=== PATIENT | female | born 1995 | race Caucasian/White ===

== ENCOUNTER 2025-04-08 00:30 | Inpatient (IN) | payer OTHER ==
[~2025-04-08] VITALS: Ht 170.2 cm; Wt 80.7 kg
[2025-04-08] MEDS ORDERED: LACTATED RINGER'S 1,000 ML IV SCH (00:45)
[2025-04-08] MEDS ORDERED: LACTATED RINGER'S 1,000 ML IV PRN (00:45)
[2025-04-08] MEDS ORDERED: MAGNESIUM HYDROXIDE/AL HYDROX 30 ML CUP PO PRN ×2 (00:45→08:00)
[2025-04-08] MEDS ORDERED: LIDOCAINE HCL 1% 30 ML SDV INJ PRN (00:45)
[2025-04-08] MEDS ORDERED: TERBUTALINE SULFATE 1 MG/ML AMP SUB-Q PRN (00:45)
[2025-04-08] MEDS ORDERED: CALCIUM CARBONATE 500 MG CHEW PO PRN ×2 (00:45→08:00)
[2025-04-08] MEDS ORDERED: LIDOCAINE 2% VISCOUS 6 ML SYR TOP ONE (00:45)
[2025-04-08] MEDS ORDERED: OXYTOCIN/0.9 % SODIUM CHLORIDE 30 UNITS/500 ML BAG IV SCH ×2 (00:45→01:15)
[2025-04-08 00:50] LABS: MCH 32.9 PG (25.6-32.2); MCHC 36.6 g/dL (32.2-35.5); MCV 89.9 fL (79.4-94.8); RBC 4.14 M/uL (3.93-5.22)
[2025-04-08 01:07] VITALS: BP 136/83
[2025-04-08] MEDS ORDERED: ROPIVACAINE 0.2% 200 ML BAG ONE (01:12)
[2025-04-08 01:27] LABS: ABO AB; ANTIBODY SCREEN NEGATIVE; RH POSITIVE
[2025-04-08] MEDS ORDERED: ROPIVACAINE 0.2% 200 ML BAG EPIDURAL SCH (01:45)
[2025-04-08] MEDS ORDERED: LACTATED RINGER'S 2,000 ML IV ONE (01:45)
[2025-04-08] MEDS ORDERED: LACTATED RINGER'S 500 ML IV PRN (01:45)
[2025-04-08] MEDS ORDERED: ePHEDrine sulfate 5 MG/ML SYRINGE IV PRN (01:45)
--- NOTE | 2025-04-08 06:14 | PR ---
[facility] [address], [place] [address] Signed Progress Notes IP Datetime Report Generated by CPAntonio: 04/08/2025 06:14 PROGRESS NOTES: [id number] Impression: Normal Progression of Labor; Reassuring Heart Rate Procedures: Sterile Vag Exam Plan: Continue Present Management; Anticipate Vaginal Delivery Informed Consent Obtain: Vaginal Delivery; Risks, Benefits and Alternatives Discussed VITAL SIGNS: [id number] Vital Signs: Reviewed; Within Normal Limits EXAM: [id number] Dilatation: 10.0 Effacement: 100 Effacement: 100 Effacement: 100 Effacement: 90 Effacement: 90 Effacement: 90 Effacement: 80 Station: 1 Station: 1 Station: 1 Station: 0 Station: -1 Station: -1 Station: -1 Contractions: Q 2-3 min MEMBRANES: [id number] Amniotic Fluid Color: Meconium, Light Comments: Pt seen and examined. Doing well. FHT reassuring. Pushed well w/ early contractions. Will continue pushing and anticipate soon. All questions answered. FETUS A: [id number] FHR Baseline: 125 Variability: Minimal - >Undetectable to <=5bpm Accelerations: 15X15 Decelerations: Variable FHR Category: Category II Presentation: Vertex Comments on Fetus A: No evidence of metabolic acidosis FETUS B: [id number] *Electronically Signed* 04/08/25 0614 ANTONIO JACKSON) DO PATIENT NAME: KYM HERNANDEZ PROGRESS NOTE DATE OF : 97 PHYSICIAN: ANTONIO JACKSON (JD) DO RPT #: [id number] REPORT IS CONFIDENTIAL AND NOT TO BE RELEASED WITHOUT AUTHORIZATION [facility] [address], [place] [address] Signed Signing Physician: Antonio Jackson DO Copies: ~ *Electronically Signed* 04/08/25 0614 ANTONIO JACKSON) DO PATIENT NAME: KYM HERNANDEZ PROGRESS NOTE DATE OF : 97 PHYSICIAN: ANTONIO JACKSON (JD) DO RPT #: [id number] REPORT IS CONFIDENTIAL AND NOT TO BE RELEASED WITHOUT AUTHORIZATION
[2025-04-08] MEDS ORDERED: ACETAMINOPHEN 325 MG TAB PO PRN (08:00)
[2025-04-08] MEDS ORDERED: FERROUS SULFATE 325 MG TAB PO SCH (08:00)
[2025-04-08] MEDS ORDERED: OXYCODONE/APAP 5/325 TAB PO PRN (08:00)
[2025-04-08] MEDS ORDERED: HYDROCODONE/ACETA 5/325 TAB PO PRN (08:00)
[2025-04-08] MEDS ORDERED: BENZOCAINE 60 ML AEROSOL TOP PRN (08:00)
[2025-04-08] MEDS ORDERED: IBUPROFEN 600 MG TAB PO PRN (08:00)
[2025-04-08] MEDS ORDERED: HYDROCORTISONE ACETATE 25 MG SUPP PR PRN (08:00)
[2025-04-08] MEDS ORDERED: MAGNESIUM HYDROXIDE 30 ML UDC PO PRN (08:00)
[2025-04-08] MEDS ORDERED: WITCH HAZEL/GLYCERIN 1 EA PAD TOP PRN (08:00)
[2025-04-08] MEDS ORDERED: OXYTOCIN/0.9 % SODIUM CHLORIDE 500 ML IV SCH (08:00)
[2025-04-08] MEDS ORDERED: SENNOSIDES/DOCUSATE 1 EA TAB PO SCH (09:00)
[2025-04-09 05:23] LABS: MCH 32.6 PG (25.6-32.2); MCHC 35.4 g/dL (32.2-35.5); MCV 92.2 fL (79.4-94.8); RBC 3.22 M/uL (3.93-5.22)
== END 2025-04-09 14:30 | disposition home or self-care (01) | DRG 807 ==
LOC: FBC 00:30
PROVIDERS: ADMIT Obstetrics & Gynecology; ATTEND Obstetrics & Gynecology
PROC: 10E0XZZ Delivery of Products of Conception, External Approach (ICD-10-PCS; principal; 2025-04-08)
PROC: 0KQM0ZZ Repair Perineum Muscle, Open Approach (ICD-10-PCS; 2025-04-08)
PROC: 00HU33Z Insertion of Infusion Device into Spinal Canal, Percutaneous Approach (ICD-10-PCS; 2025-04-08)
PROC: 3E0R3BZ Introduction of Anesthetic Agent into Spinal Canal, Percutaneous Approach (ICD-10-PCS; 2025-04-08)
DX: O48.0 Post-term pregnancy (principal); Z37.0 Single live birth; Z3A.40 40 weeks gestation of pregnancy; O77.0 Labor and delivery complicated by meconium in amniotic fluid; O70.1 Second degree perineal laceration during delivery
CPT/HCPCS: 36415; 85027; 86850; 86900; 86901; A9270; J7121